=== PATIENT | female | born 1970 | race Caucasian/White ===

== ENCOUNTER 2020-02-07 13:04 | Outpatient (CLI) | payer OTHER, SELFPAY ==
--- NOTE | ~2020-02-07 | XR_ITS ---
EXAMINATION: XR lumbar spine 2-3V EXAM DATE: 02/07/2020 13:31 INDICATION: Right leg sciatica, low back pain. TECHNIQUE: Frontal and lateral projections of the lumbar spine. Comparison is made to prior examinat ion from 11/11/2014. FINDINGS: There is bilateral L5 chronic spondylolysis with greater than 2 anterolisthesis L5 on S1, although these segments appear to be fused today. There is posterior fusion hardware at L5/S1. There is mild to moderate lumbar facet arthropathy. Sacrum, sacroiliac joints, sacral arcuate lines are int act. Minimal lumbar disc disease. There is IUD projecting over the central aspect of the pelvis. IMPRESSION: 1. Chronic L5 spondylolysis with grade 2 anterolisthesis L5 on S1, but also fusion of these vertebr al bodies. 2. Mild to moderate arthropathy. Reviewed, dictated and finalized at location A. IMPRESSION: 1. Chronic L5 spondylolysis with grade 2 anterolisthesis L5 on S1, but also f usion of these vertebral bodies. 2. Mild to moderate arthropathy.
== END 2020-02-07 13:05 | disposition home or self-care (01) ==
LOC: ANHIMG 13:14
PROVIDERS: PCP Emergency Medicine; Visit Provider Emergency Medicine
DX: M54.41 Lumbago with sciatica, right side (principal); M47.816 Spondylosis without myelopathy or radiculopathy, lumbar region; M43.16 Spondylolisthesis, lumbar region; M12.88 Other specific arthropathies, not elsewhere classified, other specified site
CPT/HCPCS: 72100

== ENCOUNTER 2020-07-19 08:31 | Outpatient (CLI) | payer OTHER, SELFPAY ==
--- NOTE | ~2020-07-19 | XR_ITS ---
EXAMINATION: XR UGIAC wo kub DATE: 07/19/2020 09:15 INDICATION: Gastroesophageal reflux disease without esophagitis TECHNIQUE: The patient drank thick barium, gas-producing crystals, and thin barium. Fluoroscopy of th e esophagus, stomach, and proximal small bowel were performed. Fluoroscopy exposure time was 1.9 bev ramu. The DAP for this procedure was 17.903 Gycm2. COMPARISON: None. FINDINGS: There is no mass or stricture of the esophagus. Esophageal motility is normal. There is no hiatal hernia. There was no gastroesophageal reflux with provocative maneuvers. The stomach and proxi mal small bowel show normal folding patterns. IMPRESSION: 1. Unremarkable upper GI. Reviewed, dictated and finalized at location A. IMPRESSION: 1. Unremarkable upper GI.
== END 2020-07-19 08:32 | disposition home or self-care (01) ==
LOC: ANHIMG 08:39
PROVIDERS: PCP Emergency Medicine; Visit Provider Emergency Medicine
DX: K21.9 Gastro-esophageal reflux disease without esophagitis (principal)
CPT/HCPCS: 74246

== ENCOUNTER 2021-03-16 10:29 | Outpatient (CLI) | payer OTHER, SELFPAY ==
--- NOTE | ~2021-03-16 | XR_ITS ---
EXAMINATION: XR hand LT min 3V DATE: 03/16/2021 10:41 INDICATION: Left hand pain. TECHNIQUE: 3 views of left hand were obtained. COMPARISON: None. FINDINGS: Bone alignment is normal. No fracture. There is mild osteoarthritis of first carpometacarpa l joint, first metacarpophalangeal joint, and second and third distal interphalangeal joints. IMPRESSION: 1. Mild polyarticular osteoarthritis. Reviewed, dictated and finalized at location A.
--- NOTE | ~2021-03-16 | XR_ITS ---
EXAMINATION: XR hand RT min 3V DATE: 03/16/2021 10:41 INDICATION: Right hand pain. TECHNIQUE: 3 views of right hand were obtained. COMPARISON: None. FINDINGS: Bone alignment is normal. No fracture. There is mild osteoarthritis of second metacarpophal angeal joint, first metacarpophalangeal joint, and second, fourth, and fifth distal interphalangeal j oints. IMPRESSION: 1. Mild polyarticular osteoarthritis. Reviewed, dictated and finalized at location A.
== END 2021-03-16 10:30 | disposition home or self-care (01) ==
LOC: ANHIMG 10:31
PROVIDERS: PCP Emergency Medicine; Visit Provider Emergency Medicine
DX: M19.041 Primary osteoarthritis, right hand (principal); M19.042 Primary osteoarthritis, left hand
CPT/HCPCS: 73130

== ENCOUNTER 2022-01-02 00:22 | Day surgery (SDC) | payer OTHER, SELFPAY ==
[2021-12-28 11:11] VITALS: BMI 33.7
[2022-01-02 06:17] VITALS: BP 119/79; PULSE 78; RESP 16; TEMP 36.3; O2SAT 99; BMI 33.7
[2022-01-02] MEDS: LACTATED RINGERS 1,000 ML 150 ML IV CONT ×2 (06:38→07:47)
--- NOTE | 2022-01-02 07:19 | PM.HPGS ---
History of Present Illness History of Present Illness Consent: Risks, benefits, and alternatives have been discussed and questions answered. Patient agrees to proceed with procedure. Chief complaint: neoplasm screening Narrative: Laura Govea is a 51 year old female here for first screening colonoscopy Review of Systems Constitutional: Constitutional: Denies headache(s) and Denies weakness Eyes: Eyes: Denies blurry vision ENT: Reports Normal hearing present, Denies headache(s) and Denies neck pain Cardiovascular: Cardiovascular: Denies chest pain and Denies dyspnea Respiratory: Respiratory: Denies dyspnea Gastrointestinal: Gastrointestinal: Reports no additional gastrointestinal complaints Genitourinary: Genitourinary: Denies dysuria Musculoskeletal: Musculoskeletal: Denies neck pain Integumentary/Breasts: Skin/Breast: Denies dry skin Neurologic: Reports Normal hearing present, Denies headache(s) and Denies weakness Psychiatric: Psychiatric: Denies anxiety Endocrine: Endocrine: Denies change in body appearance Hematologic/Lymphatic: Hematologic/Lymphatic: Denies easy bleeding Allergic/Immunologic: Allergic/Immunologic: Denies urticaria PMFSH Past Medical History Medical History (Updated 01/02/22 @ 07:19 by Silvano Scott MD) Colon cancer screening Social History Social History Years smoked: 20 Smoking status: Former smoker Tobacco type: cigarettes Alcohol intake: never Substance use: current Substance use type: marijuana Other substance usage details: SMOKES EVERYDAY- Living arrangements: with family Spiritual care concerns: No Meds Home Medications and Allergies Home Medications Medication Instructions Recorded Confirmed Type cetirizine 10 mg PO DAILY 12/28/21 01/02/22 History fluoxetine 60 mg PO DAILY 12/28/21 01/02/22 History melatonin 3 mg PO HS 12/28/21 01/02/22 History montelukast 10 mg PO HS 12/28/21 01/02/22 History rosuvastatin 10 mg PO DAILY 12/28/21 01/02/22 History Allergies Allergy/AdvReac Type Severity Reaction Status Date / Time adhesive Allergy Intermediate RASH Verified 01/02/22 06:24 Vital Signs Vital Signs - 24 hr 01/02/22 06:17 Temperature 97.3 F L Pulse Rate 78 Respiratory Rate 16 Blood Pressure 119/79 Pulse Oximetry 99 Exam Const: General: comfortable and no acute distress HENMT: General nose exam: Normal nares present Eyes: General: appearance normal, both eyes and all related structures Neck: Neck: no JVD Resp: Auscultation: clear to auscultation bilaterally Cardio: Rate: regular rate Rhythm: regular rhythm GI: Inspection: non-distended GI Palp: Yes Soft to palpation Skin: General skin exam: normal color Neuro: General: gait normal Speech: normal speech Extrem: General: normal to inspection Psych: Mental Status: mental status grossly normal Assessment and Plan Assessment and plan (1) Colon cancer screening: Code(s): Z12.11 - Encounter for screening for malignant neoplasm of colon Status: Acute Assessment and Plan: colonoscopy
--- NOTE | 2022-01-02 07:24 | P.PNAN_ITS ---
Anes - Initial Pre Proc Eval Procedure: Operation Date: 01/02/22 07:30 Proposed Procedures p Screening Colonoscopy - Silvano Scott MD Date/Time: 01/02/22 07:24 Surgeon: Silvano Scott MD Pre Op Diagnosis: neoplasm screening Patient Data Age: 51 Gender: F Height: 1.6 m Weight: 86.4 kg Last Vital Signs Temp 36.3 C L 01/02/22 06:17 Pulse 78 01/02/22 06:17 Resp 16 01/02/22 06:17 BP 119/79 01/02/22 06:17 Pulse Ox 99 01/02/22 06:17 Allergies Allergy/AdvReac Type Severity Reaction Status Date / Time adhesive Allergy Intermediate RASH Verified 01/02/22 06:24 Home Medications Medication Instructions Recorded Confirmed Type cetirizine 10 mg PO DAILY 12/28/21 01/02/22 History fluoxetine 60 mg PO DAILY 12/28/21 01/02/22 History melatonin 3 mg PO HS 12/28/21 01/02/22 History montelukast 10 mg PO HS 12/28/21 01/02/22 History rosuvastatin 10 mg PO DAILY 12/28/21 01/02/22 History Patient hx anesthesia problems: none Family hx anesthesia problems: none Results Review: All pre-operative results and documents have been reviewed as part of the pre-operative evaluation. [facility] Past Medical History Medical History (Updated 01/02/22 @ 07:25 by Tab Gonzalez MD) Anxiety Colon cancer screening Depression Hyperlipidemia Obesity Social History Social History Years smoked: 20 Smoking status: Former smoker Tobacco type: cigarettes Alcohol intake: never Substance use: current Substance use type: marijuana Other substance usage details: SMOKES EVERYDAY- Living arrangements: with family Spiritual care concerns: No Anes - Eval Final PreProcedure Day of Procedure 01/02/22 07:24 Patient weight: overweight Heart: regular rate and rhythm Lungs: clear to auscultation and normal air movement Airway: Mallampati scale class II Neurological: alert and oriented Last oral intake: >/= 8 hours ASA classification: II Emergent: no Anesthetic plan: proceed Anesthesia type and monitoring: general GIVS Results Review: All pre-operative results and documents have been reviewed as part of the pre-operative evaluation. Informed Consent: The patient's anesthetic plan and its attendant risks and benefits were discussed with the patient/family/POA. Questions were solicited and answers provided to the satisfaction of the patient/family/POA.
[2022-01-02 07:48] VITALS: BP 84/50; PULSE 73; RESP 24; O2SAT 95
[2022-01-02 07:58] VITALS: BP 113/69; PULSE 70; RESP 21; O2SAT 99
[2022-01-02 08:08] VITALS: BP 125/85; PULSE 71; RESP 23; O2SAT 100
== END 2022-01-02 08:20 | disposition home or self-care (01) ==
PROVIDERS: PCP Emergency Medicine; Visit Provider Internal Medicine Gastroenterology
PROC: 0DJD8ZZ Inspection of Lower Intestinal Tract, Via Natural or Artificial Opening Endoscopic (ICD-10-PCS; CPT 45378; principal; 2022-01-02 07:30)
DX: Z12.11 Encounter for screening for malignant neoplasm of colon (principal); K63.5 Polyp of colon; K57.30 Diverticulosis of large intestine without perforation or abscess without bleeding; K64.8 Other hemorrhoids; E78.5 Hyperlipidemia, unspecified; F41.8 Other specified anxiety disorders; Z87.891 Personal history of nicotine dependence; F12.90 Cannabis use, unspecified, uncomplicated
CPT/HCPCS: 45385; 88305; J2704; J7120

== ENCOUNTER 2024-11-02 09:01 | Outpatient (CLI) | payer OTHER, SELFPAY ==
--- NOTE | ~2024-11-02 | MM_ITS ---
EXAMINATION: MM screening [facility] BI w [facility] HISTORY: Screening TECHNIQUE: Craniocaudal and mediolateral oblique 3-D tomosynthesis images were obtained and synthetic 2-D images were generated. CAD analysis was submitted and interpreted. COMPARISON: Comparison to multiple prior studies sequentially, with oldest reviewed study dated 04/01. BREAST PARENCHYMAL COMPOSITION: Not dense: There are scattered areas of fibroglandular density. FINDINGS: There is no evidence of suspicious mass, calcification, or architectural distortion to sugg est malignancy in either breast. There has been no suspicious interval change. IMPRESSION: 1. No mammographic evidence of malignancy. 2. Recommend routine screening mammography in one year. BI-RADS Category 1: Negative Reviewed, dictated and finalized at location A. [facility] CHIEF
--- OUTSIDE RECORDS SUMMARY | 2024-11-02 09:22 | XMS_ITS | Clinical Summary ---
Author Organization [facility] Address [address] [place] [address] Care Team Providers Care Front Desk Host Name Role Phone Houston Perales MD Primary Care Provider [phone] Lauren Taylor RN Unavailable [phone] Source Comments [facility],non-owned Affiliates and Associated Physician Practices is amultiple site organization consisting of ambulatory clinics and hospital sitesin [place], [place], [place] and [place]. This disclosure is being madepursuant to the Care Everywhere program and may not contain all information available regarding this patient. Last updated 18.[facility] Allergies Active Allergy Reactions Criticality Noted Date Comments Adhesive Sensitivity Rash Low 06/06/2015 Medications * Be aware that medications may not be up to date on this document. Alwaysverify current medications with the patient. Medication Sig Dispensed Refills Start Date End Date Status sertraline (ZOLOFT) 100 MG tablet 200 mg 11/04/2014 Active traMADol (ULTRAM) 50 MG tablet 12/02/2014 Active ranitidine (ZANTAC) 150 MG tablet Take 150 mg by mouth 2 times daily. Active methocarbamol (ROBAXIN) 750 MG tablet Take 1 Tab by mouth every 6 hours as needed for Muscle Spasms 40 Tab 1 06/06/2015 Active Additional Information Patient not taking.Reported on 09/11/2015 MethylPREDNISolone (MEDROL, AZAR,) 4 MG KIT Take as directed 1 Kit 0 06/09/2015 Active Additional Information Patient not taking.Reported on 09/11/2015 Melatonin 10 MG Active etodolac (LODINE) 500 MG tablet Take 500 mg by mouth 3 times daily 90 Tab 1 12/13/2015 Active hydrocodone-acetamin ophen (NORCO) 5-325 MG tablet Take 1 Tab by mouth every 4 hours as needed for Pain (mailed to patient) 50 Tab 0 01/01/2016 Active Active Problems No known active problems Family History Medical History Relation Name Comments Cancer Father Gout Father Leukemia Father Other Mother Degenerative Di sk Disease Relation Name Status Comments Brother Alive Child Alive Father Alive Mother Alive Sister Alive Social History Tobacco Use Types Packs/Day Years Used Date Smoking Tobacco: Every Day Cigarettes 0.3 30 Smokeless Tobacco: Never Tobacco Cessation:Ready to Q uit: No; Counseling Given: No Comments:e-cig Alcohol Use Standard Drinks/Week Comments No 0 (1 standard drink = 0.6 oz pur e alcohol) Sex and Gender Information Value Date Recorded Sex Assigned at Female 11/16/2022 4:22 PM 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 Gender Identity Female 11/16/2022 4:22 PM 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 Sexual Orientation Straight 11/16/2022 4: 22 PM 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 Last Filed Vital Signs Vital Sign Reading Time Taken Comments Blood Pressure 129/74 09/11/2015 1:29 PM 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 Pulse 99 09/11/2015 1:29 PM 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 Temperature 36.9 ??C (98.5 ??F) 06/06/2015 8:36 PM CD T Respiratory Rate 18 06/06/2015 8:36 PM CDT Oxygen Saturation 97% 06/06/2015 8:36 PM CDT Inhaled Oxygen Concentration - - Weight 98.9 kg (218 lb) 09/11/2015 1:29 PM 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 Height 162.6 cm (5' 4 ) 09/11/2015 1:29 PM 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 Body Mass Index 37.42 09/11/2015 1:29 PM 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 Plan of Treatment Health Maintenance Due Date Last Done Comments COLOGUARD (AGES 45-75) - COL ON CA SCREENING 1971 COLON MONITORING 1971 COLONOSCOPY - COLON CA SCREENING 1971 CT COLONOGRAPHY - COLON CA SCREENING 1971 Colorectal Cancer Screening 1971 FIT - COLON CA SCREENING 1971 FLEX SIG - COLON CA SCREENING 1971 LIPID TESTING 1971 MAMMOGRAM 1971 PAP SMEAR 1971 HIV SCREENING 1986 HEPATITIS C SCREENING 04/30/1989 DTAP/TDAP/TD VACCINES (1 - Tdap) 1990 HEPATITIS B VACCINE (1 of 3 - 19+ 3-dose series) 1990 PNEUMOCOCCAL VACCINE 50+ (1 of 2 - PCV) 1990 PNEUMOCOCCAL VACCINE (1 of 2 - PCV) 1990 ZOSTER VACCINE (1 of 2) 2021 COVID-19 VACCINE (1 - 2023-2 5 season) 2024 INFLUENZA VACCINE (#1) 2024 DEPRESSION SCREENING 10/06/2024 HIB VACCINE Aged Out No longer eligi ble based on patient's age to complete this topic HPV VACCINE Aged Out No longer eligi ble based on patient's age to complete this topic MENINGOCOCCAL (Group B) VACCINE Aged Out No longer eligible based on patient's age to complete this topic MENINGOCOCCAL VACCINE Aged Out No mario indy eligible based on patient's age to complete this topic Medical Devices Implanted Type Area Smelter Operator Device Identifier Shelf Expiration Date Model / Serial / Lot Chip Canc Bone Frz Dried 4-9.5mm 30cc Implanted:Qty: 1 on 06/06/2015 by Fabrice Triana MD at [facility] N/A: Spine Lumbar [employer] 07/12/2019 [id number] / / [id number] Kt Infs Bone Grft Med Implanted:Qty: 1 on 06/06/2015 by Fabrice Triana MD at [facility] N/A: Spine Lumbar Medtronic [employer]or [employer] 09/05/2016 [id number] / / [id number] Plate Spire 45mm Implanted:Qty: 1 on 06/06/2015 by Fabrice Triana MD at [facility] N/A: Spine Lumbar Medtronic [employer] [id number] / / St Scrw Brk Off M4 Implanted:Qty: 1 on 06/06/2015 by Fabrice Triana MD at [facility] N/A: Spine Lumbar Medtronic [employer] [id number] / / Advance Directives * Full Code (Latest Code Status on File) Date Activated Date Inactivated Comments 06/06/2015 5:15 PM 06/07/2015 2:13 AM Care Teams Front Desk Host Relationship Specialty Start Date End Date Houston Perales MD [address] [place] [address] PCP - General Family Medicine 05/29/15 Lauren Taylor, RN Communications Lead 06/06/15
--- OUTSIDE RECORDS SUMMARY | 2024-11-02 09:22 | XMS_ITS | Patient Health Summary ---
Author Organization [facility] Address [address] [place] [address] Care Team Providers Care Wire Brush Maker Name Role Phone Houston Perales MD Primary Care Provider [phone] Lauren Taylor RN Unavailable [phone] [facility],non-owned Affiliates and Associated Physician Practices is amultiple site organization consisting of ambulatory clinics and hospital sitesin [place], [place], [place] and [place]. This disclosure is being madepursuant to the Care Everywhere program and may not contain all information available regarding this patient. Last updated 18.[facility] Allergies * Adhesive Sensitivity(Rash) -Low Criticality Medications * Be aware that medications may not be up to date on this document. Alwaysverify current medications with the patient. * sertraline (ZOLOFT) 100 MG tablet(Started 11/04/2014) 200 mg * traMADol (ULTRAM) 50 MG tablet(Started 12/02/2014) * ranitidine (ZANTAC) 150 MG tablet Take 150 mg by mouth 2 times daily. * methocarbamol (ROBAXIN) 750 MG tablet(Started 06/06/2015) Take 1 Tab by mouth every 6 hours as needed for Muscle Spasms 1 refill left * MethylPREDNISolone (MEDROL, AZAR,) 4 MG KIT(Started 06/09/2015) Take as directed * Melatonin 10 MG * etodolac (LODINE) 500 MG tablet(Started 12/13/2015) Take 500 mg by mouth 3 times daily 1 refill left * hydrocodone-acetaminophen (NORCO) 5-325 MG tablet(Started 01/01/2016) Take 1 Tab by mouth every 4 hours as needed for Pain (mailed to patient) Active Problems No known active problems Social History Tobacco Use Types Packs/Day Years Used Date Smoking Tobacco: Every Day Cigarettes 0.3 30 Smokeless Tobacco: Never Tobacco Cessation:Ready to Q uit: No; Counseling Given: No Comments:e-cig Alcohol Use Standard Drinks/Week Comments No 0 (1 standard drink = 0.6 oz pur e alcohol) Sex and Gender Information Value Date Recorded Sex Assigned at Female 11/16/2022 4:22 PM HOSTEL MANAGER Gender Identity Female 11/16/2022 4:22 PM HOSTEL MANAGER Sexual Orientation Straight 11/16/2022 4: 22 PM HOSTEL MANAGER Last Filed Vital Signs Vital Sign Reading Time Taken Comments Blood Pressure 129/74 09/11/2015 1:29 PM HOSTEL MANAGER Pulse 99 09/11/2015 1:29 PM HOSTEL MANAGER Temperature 36.9 ??C (98.5 ??F) 06/06/2015 8:36 PM CD T Respiratory Rate 18 06/06/2015 8:36 PM CDT Oxygen Saturation 97% 06/06/2015 8:36 PM CDT Inhaled Oxygen Concentration - - Weight 98.9 kg (218 lb) 09/11/2015 1:29 PM HOSTEL MANAGER Height 162.6 cm (5' 4 ) 09/11/2015 1:29 PM HOSTEL MANAGER Body Mass Index 37.42 09/11/2015 1:29 PM HOSTEL MANAGER Medical Devices Implanted Type Area Irrigation Installation Specialist Device Identifier Shelf Expiration Date Model / Serial / Lot Chip Canc Bone Frz Dried 4-9.5mm 30cc Implanted:Qty: 1 on 06/06/2015 by Fabrice Triana MD at [facility] N/A: Spine Lumbar [employer] 07/12/2019 [id number] / / [id number] Infs Bone Grft Med Implanted:Qty: 1 on 06/06/2015 by Fabrice Triana MD at [facility] N/A: Spine Lumbar Medtronic [employer] 09/05/2016 [id number] / / [id number] Plate Spire 45mm Implanted:Qty: 1 on 06/06/2015 by Fabrice Triana MD at [facility] N/A: Spine Lumbar Medtronic [employer] [id number] / / St Scrw Brk Off M4 Implanted:Qty: 1 on 06/06/2015 by Fabrice Triana MD at [facility] N/A: Spine Lumbar Medtronic [employer] [id number] / / Procedures * CT LUMBAR SPINE WO CONTRAST(Performed 01/01/2016) Performed for S/P lumbar fusion * XR LUMBAR SPINE 2 OR 3VW(Performed 09/11/2015) Performed for S/P lumbar fusion * CARDIAC RHYTHM STRIP ORDER(Performed 06/09/2015) * XR SPINE 1 VIEW(Performed 06/06/2015) Performed for Back pain, unspecified location * XR SPINE 1 VIEW(Performed 06/06/2015) Performed for Back pain, unspecified location * FUSION LUMBAR POSTERIOR WITH SPIRE PLATING(Performed 06/06/2015) Performed for Congenital spondylolisthesis * HCG URINE QUALITATIVE - POINT OF CARE(Performed 06/06/2015) * MRI LUMBAR SPINE WO CONTRAST(Performed 05/31/2015) Performed for Spondylolisthesis of lumbar region * XR THORACIC SPINE 2VW(Performed 03/27/2015) Performed for Thoracic back pain, unspecified * XR CERVICAL SPINE 2 OR 3VW(Performed 03/27/2015) Performed for Neck pain * XR LUMBAR SPINE 2 OR 3VW(Performed 03/27/2015) Results * CT LUMBAR SPINE NON CONTRAST (01/01/2016 12:38 PM CDT) Anatomical Region Laterality Modality Spine Computed Tomogra phy 01/01/2016 3:43 PM CDT Impressions 01/01/2016 4:39 PM CDT 1. Postoperative appearance of interval L5-S1 posterior spinal stabilization with unchanged grade 2 anterolisthesis of L5 on S1 due to chronic L5 pars interarticulares defects resulting in unchanged severe bilateral neural foraminal stenosis at this level. Narrative 01/01/2016 4:39 PM CDT EXAMINATION: Computed Tomography (CT) of the lumbar spine without contrast HISTORY: L5-S1 grade 2 spondylolisthesis status instrumented posterior spinal stabilization. TECHNIQUE: CT of the lumbar spine was performed without contrast according to standard protocol. COMPARISON: Comparison is made with a prior MRI study from May 31, 2015. FINDINGS: Postoperative appearance of interval L5-S1 instrumented posterior spinal stabilization is seen with two vertical parallel metallic plates abutting the L5 and S1 spinous processes. 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 There is advanced degenerative disc disease at the L5-S1 level with disc space height loss and endplate sclerosis. The remaining intervertebral discs appear normal in height. The vertebral bodies appear normal in height without evidence of compression fractures. There is atherosclerotic calcification in the abdominal aorta. An intrauterine contraceptive device is noted. L1-L2: There is no disc herniation. There is no facet osteoarthritis. There is no neural foraminal stenosis. There is no spinal canal stenosis. L2-L3: There is no disc herniation. There is minimal left facet osteoarthritis. There is no neural foraminal stenosis. There is no spinal canal stenosis. L3-L4: There is no disc herniation. There is no facet osteoarthritis. There is no neural foraminal stenosis. There is no spinal canal stenosis. L4-L5: There is no disc herniation. There is mild right facet osteoarthritis. There is no neural foraminal stenosis. There is no spinal canal stenosis. L5-S1: There are anterior and posterior disc bulges due to anterolisthesis. There is moderate to severe bilateral facet osteoarthritis. There is severe bilateral neural foraminal stenosis. There is no spinal canal stenosis. Procedure Note James Ram MD - 01/01/2016 EXAMINATION: Computed Tomography (CT) of the lumbar spine without contrast HISTORY: L5-S1 grade 2 spondylolisthesis status instrumented posterior spinal stabilization. TECHNIQUE: CT of the lumbar spine was performed without contrast according to standard protocol. COMPARISON: Comparison is made with a prior MRI study from May 31, 2015. FINDINGS: Postoperative appearance of interval L5-S1 instrumented posterior spinal stabilization is seen with two vertical parallel metallic plates abutting the L5 and S1 spinous processes. 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 There is advanced degenerative disc disease at the L5-S1 level with disc space height loss and endplate sclerosis. The remaining intervertebral discs appear normal in height. The vertebral bodies appear normal in height without evidence of compression fractures. There is atherosclerotic calcification in the abdominal aorta. An intrauterine contraceptive device is noted. L1-L2: There is no disc herniation. There is no facet osteoarthritis. There is no neural foraminal stenosis. There is no spinal canal stenosis. L2-L3: There is no disc herniation. There is minimal left facet osteoarthritis. There is no neural foraminal stenosis. There is no spinal canal stenosis. L3-L4: There is no disc herniation. There is no facet osteoarthritis. There is no neural foraminal stenosis. There is no spinal canal stenosis. L4-L5: There is no disc herniation. There is mild right facet osteoarthritis. There is no neural foraminal stenosis. There is no spinal canal stenosis. L5-S1: There are anterior and posterior disc bulges due to anterolisthesis. There is moderate to severe bilateral facet osteoarthritis. There is severe bilateral neural foraminal stenosis. There is no spinal canal stenosis. IMPRESSION 1. Postoperative appearance of interval L5-S1 posterior spinal stabilization with unchanged grade 2 anterolisthesis of L5 on S1 due to chronic L5 pars interarticulares defects resulting in unchanged severe bilateral neural foraminal stenosis at this level. Briana Brice APRN-GRIP CT ORDERABLES * XR LUMBAR SPINE 2 OR 3 VW (09/11/2015 1:12 PM HOSTEL MANAGER) Only the most recent of2 resultswithin the time period is included. Anatomical Region Laterality Modality Spine Radiographic Destiny ging 09/11/2015 1:18 PM HOSTEL MANAGER Impressions 09/11/2015 1:24 PM HOSTEL MANAGER Interval fusion of the posterior elements at L5-S1. L5 pars defects and likely unchanged grade 2 anterolisthesis of L5 on S1. Narrative 09/11/2015 1:24 PM HOSTEL MANAGER Examination: Lumbar spine 2 or 3 views History: Lumbar spondylosis Findings: Lateral flexion and extension views of the lumbar spine were performed with comparison made to 03/27/2015. There has been interval fusion of L5-S1 posteriorly. L5 pars defects and grade 2 anterolisthesis of L5 on S1 appears likely unchanged. There is no definite change upon flexion and extension. No compression deformity is seen. There is severe disc height loss at L5-S1. Procedure Note Mauro Mendiola MD - 09/11/2015 Examination: Lumbar spine 2 or 3 views History: Lumbar spondylosis Findings: Lateral flexion and extension views of the lumbar spine were performed with comparison made to 03/27/2015. There has been interval fusion of L5-S1 posteriorly. L5 pars defects and grade 2 anterolisthesis of L5 on S1 appears likely unchanged. There is no definite change upon flexion and extension. No compression deformity is seen. There is severe disc height loss at L5-S1. IMPRESSION Interval fusion of the posterior elements at L5-S1. L5 pars defects and likely unchanged grade 2 anterolisthesis of L5 on S1. Fabrice Triana MD DIAGNOSTIC IMAGING O RDERABLES * CARDIAC RHYTHM STRIP ORDER (06/09/2015 5:31 AM CDT) Narrative 06/09/2015 5:31 AM CDT Ordered by an unspecified provider. Scanned Document CARDIAC SERVICES ORD ERABLES * XR SPINE 1 VIEW (06/06/2015 12:54 PM CDT) Only the most recent of2 resultswithin the time period is included. Narrative [facility] - 06/07/2015 11:05 AM CDT No Dictation. Fabrice Triana MD DIAGNOSTIC IMAGING O ARMIN [facility] [address] [place] [address] * HCG URINE QUALITATIVE - POINT OF CARE (IP) (06/06/2015 9:32 AM CDT) HCG Qual Urine Negative Negative [facility] QC Verified Yes Yes [facility] POC T TESTING Urine specimen (specimen) URINE / Unknown 06/06/2015 9:32 AM CDT Leonard Mckeon DO LAB - POINT OF CARE ORDERABLES Performing Organization Address City/[facility] Co de Phone Number [facility] [address] [place] [address] * MRI SPINE LUMBAR NON CONTRAST (05/31/2015 10:20 AM CDT) Anatomical Region Laterality Modality Spine Magnetic Resonan ce 05/31/2015 10:5 6 AM CDT Impressions 05/31/2015 11:04 AM CDT 1. Bilateral pars defects at L5, with grade 2 anterolisthesis at L5-S1. There is associated severe degenerative disc disease, moderate central canal stenosis, and severe bilateral neuroforaminal stenosis. 2. The intervertebral discs at L1-2 through L4-5 are normal. Narrative 05/31/2015 11:04 AM CDT EXAMINATION: Magnetic resonance imaging (MRI) of the lumbar spine without contrast HISTORY: 45-year-old female, acquired spondylolisthesis TECHNIQUE: MRI of the lumbar spine was performed according to standard protocol. COMPARISON: ??None FINDINGS: The lumbar lordosis is normal. There is grade 2 anterolisthesis at L5-S1. This measures 12 mm. There are bilateral pars interarticularis defects at L5. Alignment at the other levels is normal. Intervertebral disc signal is normal from T12-L1 through L4-L5. The visualized distal spinal cord is normal, terminating at L1. No epidural mass or collection is seen. L1-L2: There is no disc bulge. There is no central canal stenosis. There is no facet osteoarthritis. There is no neural foraminal stenosis. L2-L3: There is no disc bulge. There is no central canal stenosis. There is no facet osteoarthritis. There is no neural foraminal stenosis. L3-L4: There is no disc bulge. There is no central canal stenosis. There is mild facet degeneration. There is no neural foraminal stenosis. L4-L5: There is no disc bulge. There is no central canal stenosis. There is mild facet degeneration. There is no neural foraminal stenosis. L5-S1: There is severe disc space narrowing and loss of the normal disc signal. There is marrow endplate degenerative signal in the inferior endplate of L5 and the superior endplate of S1. There is severe bilateral neuroforaminal stenosis. There is moderate central canal stenosis. Subcentimeter Tarlov cysts are noted in the sacral spinal canal at S1 and S2. Procedure Note Obey Rushing MD - 05/31/2015 EXAMINATION: Magnetic resonance imaging (MRI) of the lumbar spine without contrast HISTORY: 45-year-old female, acquired spondylolisthesis TECHNIQUE: MRI of the lumbar spine was performed according to standard protocol. COMPARISON: None FINDINGS: The lumbar lordosis is normal. There is grade 2 anterolisthesis at L5-S1. This measures 12 mm. There are bilateral pars interarticularis defects at L5. Alignment at the other levels is normal. Intervertebral disc signal is normal from T12-L1 through L4-L5. The visualized distal spinal cord is normal, terminating at L1. No epidural mass or collection is seen. L1-L2: There is no disc bulge. There is no central canal stenosis. There is no facet osteoarthritis. There is no neural foraminal stenosis. L2-L3: There is no disc bulge. There is no central canal stenosis. There is no facet osteoarthritis. There is no neural foraminal stenosis. L3-L4: There is no disc bulge. There is no central canal stenosis. There is mild facet degeneration. There is no neural foraminal stenosis. L4-L5: There is no disc bulge. There is no central canal stenosis. There is mild facet degeneration. There is no neural foraminal stenosis. L5-S1: There is severe disc space narrowing and loss of the normal disc signal. There is marrow endplate degenerative signal in the inferior endplate of L5 and the superior endplate of S1. There is severe bilateral neuroforaminal stenosis. There is moderate central canal stenosis. Subcentimeter Tarlov cysts are noted in the sacral spinal canal at S1 and S2. IMPRESSION 1. Bilateral pars defects at L5, with grade 2 anterolisthesis at L5-S1. There is associated severe degenerative disc disease, moderate central canal stenosis, and severe bilateral neuroforaminal stenosis. 2. The intervertebral discs at L1-2 through L4-5 are normal. Fabrice Triana MD MR ORDERABLES * XR THORACIC SPINE 2 VW (03/27/2015 12:05 PM CDT) Anatomical Region Laterality Modality Spine Radiographic Destiny ging 03/27/2015 12:0 9 PM CDT Impressions 03/27/2015 12:09 PM CDT Unremarkable study. Narrative 03/27/2015 12:09 PM CDT Thoracic spine 2 views. History: Back pain. AP and lateral views show normal vertebral heights and interspace heights. Pedicles are intact. Procedure Note Bakari Amaro MD - 03/27/2015 Thoracic spine 2 views. History: Back pain. AP and lateral views show normal vertebral heights and interspace heights. Pedicles are intact. IMPRESSION Unremarkable study. Fabrice Triana MD DIAGNOSTIC IMAGING O RDERABLES * XR CERVICAL SPINE 2 OR 3 VW (03/27/2015 12:05 PM CDT) Anatomical Region Laterality Modality Spine Radiographic Destiny ging 03/27/2015 12:0 7 PM CDT Impressions 03/27/2015 12:22 PM CDT Unremarkable study. Edited by Anaya Porras on 03/27/2015 12:10 PM Narrative 03/27/2015 12:22 PM CDT CERVICAL SPINE TWO VIEWS History: Neck pain. AP and lateral views of the cervical spine show normal vertebral heights and interspace heights. Alignment is maintained. The odontoid process appears normal. Procedure Note Bakari Amaro MD - 03/27/2015 CERVICAL SPINE TWO VIEWS History: Neck pain. AP and lateral views of the cervical spine show normal vertebral heights and interspace heights. Alignment is maintained. The odontoid process appears normal. IMPRESSION Unremarkable study. Edited by Anaya Porras on 03/27/2015 12:10 PM Fabrice Triana MD DIAGNOSTIC IMAGING O NESSABLES Care Teams Wire Brush Maker Relationship Specialty Start Date End Date Houston Perales MD [address] [place] [id number] PCP - General Family Medicine 05/29/15 Lauren Taylor RN Cable Placer 06/06/15
--- OUTSIDE RECORDS SUMMARY | 2024-11-02 09:22 | XMS_ITS | Encounter Summary ---
Author Organization [facility] Address [address] [place] [address] Care Team Providers Care Hedis Abstractor Name Role Phone Shree Perales MD Primary Care Provider [phone] Houston Perales MD Primary Care Provider [phone] Lauren Taylor RN Unavailable [phone] Encounter Details Date Type Department Care Team (Late st Contact Info) Description 11/23/2014 Therapy Visit EXTERNAL NON-[facility] DEPT Houston Perales MD [address] [place] [address] Social History Tobacco Use Types Packs/Day Years Used Date Smoking Tobacco: Never Assessed Sex and Gender Information Value Date Recorded Sex Assigned at Female 11/16/2022 4:22 PM CONCRETE LABORER Gender Identity Female 11/16/2022 4:22 PM CONCRETE LABORER Sexual Orientation Straight 11/16/2022 4: 22 PM CONCRETE LABORER documented as of this encounter Plan of Treatment Not on file documented as of this encounter Visit Diagnoses Not on filedocumented in this encounter Care Teams Hedis Abstractor Relationship Specialty Start Date End Date Shree Perales MD [address] [place] [address] PCP - General Family Medicine 12/13/14 05/28/15 Houston Perales MD [address] [place] [address] PCP - General Family Medicine 05/29/15 Lauren Taylor, RN Engineering Teacher 06/06/15 documented as of this encounter
--- OUTSIDE RECORDS SUMMARY | 2024-11-02 09:22 | XMS_ITS | Data Portability ---
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 Patient will come back in a year unless there are new symptoms. Not available 08/17/2021 11:34:21 11/27/2022 11/27/2022 Annual gynecological exam performed. Patient will come back in a year unless there are new symptoms. Not available 11/27/2022 11:12:53 08/13/2024 08/13/2024 Annual gynecological exam performed. Patient will come back in a year unless there are new symptoms. Not available 08/13/2024 10:00:19 Plan of Treatment Reminders Order Date Submit Date Provider Last Modified By Organization Details Last Modified Time Details Appointments [facility] 2024 08:45A Eliseo GRIMALDO MD Not available Not available Not available Lab hormone panel, serum or plasma 2022 023 [facility] (Lab), [address], [place], [address], 11/28/2022 03:43:16 test, urine 2022 023 tionew yorkroya [place], [facility] [address], [place], [address], 04/07/2023 10:49:26 Referral None recorded. Procedures None recorded. Surgeries None recorded. Imaging MAMMO, screening , bilateral 2022 023 [facility] (Radiology), [address] [place], [address], 09/07/2023 05:00:49 Medication Orders ParaGard T 380A 380 square mm intrauter ine device 2022 023 Not available 04/07/2023 10:51:59 Patient TargetsNo targets recorded. Patient InstructionsNo instructions recorded. Reason for Referral None Reported. Results Created Date Observation Date Name Description Value Unit Range Abnormal Flag Note LastModifiedBy Organization Detail LastModifiedTime 11/27/1911/27/2022 FSH, LH, ESTRA DIOL estradiol 94.4 pg/mL This assay was perfo rmed using [employer] ratio n reage nts and test kits. Value s obtai latrice with other assay metho ds or kits canno t be used inter [place] . Femal e Estra diol Range s: Folli cular phase 12.4- 233 pg/mL Ovula tion phase 41.0- 398 pg/mL Lutea l phase 22.3- 341 pg/mL Postm enopa usal< 5-138 pg/mL Healt hy Pregn ant Women 1st Trime ster1 54-32 43 pg/mL 2nd Trime ster1 561-2 1280 pg/mL 3rd Trime ster8 525-> 42203 pg/mL Not Available [facility] (Lab) [address], [place], [address], 11/28/2022 03:43:14 11/27/19 23 11/27/2022 FSH, LH, ESTRA DIOL FSH 23.5 mIU/m L This assay was perfo rmed using [employer] reage nts and test kits. Value s obtai latrice with other assay metho ds or kits canno t be used inter villeda eably . Femal es Folli cular : 3.5-1 2.5 mIU/m L Ovula tion: 4.7-2 1.5 mIU/m L Lutea l: 1.7-7 .7 mIU/m L Postm enopa use: 25.8- 134.8 mIU/m L Not Available [facility] (Lab) [address] [facility], [place], [address], 11/28/2022 03:43:14 11/27/19 23 11/27/2022 FSH, LH, ESTRA DIOL LH 26.0 mIU/m L This assay was perfo rmed using [employer] reage nts and test kits. Value s obtai latrice with other assay metho ds or kits canno t be used inter villeda eably . 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 Funga l organ isms morph ologi thais consi stent with Sommer da spp. Elect ponce palafox miguel d by Raman Hartmann, CT on 2022 at 1:04 PM ----- ----- ----- ----- ----- ----- ----- ----- ----- ----- ----- ----- ----- ----- ----- ----- ----- ---- HPV RESUL TS: HPV mRNA E6/E7 : No HPV mRNA Detec gaby NOTE: This high risk HPV mRNA assay detec ts fourt een high- risk HPV types (16, 18, 31, 33, 35, 39, 45, 51, 52, 56, 58, 59, 66, 68) witho ut diffe renti ation . COMME NT: Note: This speci men was revie wed by a Cytot echno logis t and/o r Patho logis t (as indic ated in this repor t) after evalu ation using the Thinp rep Imagi ng Syste m. CLINI SHAILESH INFOR MATIO N: Menst rual Statu s: LMP (if appli cable ): Clini shailesh Histo ry/Pr eviou s Pap: Type of Neopl robb (if appli cable ): Signi fican t Clini shailesh Findi ngs: Other Histo ry: Hormo estefani (if appli cable ): PAP EDUCA MARIELY L NOTE: The Pap Test is a scree moustapha test with an inher ent false negat jerrell rate. Liqui d-bas ed sampl ing may decre ase, but will not elimi susan, false negat jererll resul ts. A negat jerrell resul t does not precl ude the prese nce and/o r devel opmen t of disea se, since the prese nce of abnor mal cells in the sampl e depen ds on the locat ion of the lesio n and sampl ing techn ique. Madalyn nued regul ar scree moustapha is the best metho d of cance r preve ntion . If repor gaby cytol ogic findi ng do not corre late with physi shailesh and/o r histo rical findi ngs, furth er inves tigat ion is recom abigail d, as clini thais ramirez nted. Not Available [facility] (Lab) [address], [place], [address], 12/02/2022 14:06:33 04/07/20 23 04/07/2023 pregn varun test, urine HCG negati ve Not Available [place] [address], [place], [address], 04/07/2023 10:49:19 08/13/20 24 08/13/2024 IMAGE GUIDE D PAP AND HPV REGAR DLESS image guided Pap, HPV regardless of Pap result SEE RESULT S BELOW CASE REPOR T: Cytol ogy Gynec ologi shailesh Repor t Case: [id number] Autho rafael prasanna Provi melecio: Stuart Grimaldo MD Colle cted: 08/13 0958 Order ing Locat ion: [place] Patho [place] Recei lorena: 08/14 0221 First Scree n: Amanda Luciano ed, CT Speci men: Serina gerard Pap - Image d, Cervi x STATE MENT OF ADEQU ACY: Satis facto ry for evalu ation Trans forma tion zone compo nent prese nt ----- ----- ----- ----- ----- ----- ----- ----- ----- ----- ----- ----- ----- ----- ----- ----- ----- ---- FINAL DIAGN OSIS: Negat jerrell for Intra epith elial Jodi berkowitz or Cristhian ross (NIL) . Mary anderson by Amanda Luciano ed, CT on 08/20 at 9:34 PM ----- ----- ----- ----- ----- ----- ----- ----- ----- ----- ----- ----- ----- ----- ----- ----- ----- ---- HPV RESUL TS: HPV mRNA E6/E7 : No HPV mRNA Detec gaby NOTE: This high risk HPV mRNA assay detec ts fourt een high- risk HPV types (16, 18, 31, 33, 35, 39, 45, 51, 52, 56, 58, 59, 66, 68) witho ut diffe renti ation . COMME NT: This speci men was revie wed by a Cytot echno logis t and/o r Patho logis t (as indic ated in this repor t) after evalu ation using the Thinp rep Imagi ng Syste m. CLINI SHAILESH INFOR MATIO N: Menst rual Statu s: LMP (if appli cable ): Clini shailesh Histo ry/Pr eviou s Pap: Type of Neopl robb (if appli cable ): Signi fican t Clini shailesh Findi ngs: Other Histo ry: Hormo estefani (if appli cable ): PAP EDUCA MARIELY L NOTE: The Pap Test is a scree moustapha test with an inher ent false negat jerrell rate. Liqui d-bas ed sampl ing may decre ase, but will not elimi susan, false negat jerrell resul ts. A negat jerrell resul t does not precl ude the prese nce and/o r devel opmen t of disea se, since the prese nce of abnor mal cells in the sampl e depen ds on the locat ion of the lesio n and sampl ing techn ique. Madalyn nued regul ar scree moustapha is the best metho d of cance r preve ntion . If repor gaby cytol ogic findi ng do not corre late with physi shailesh and/o r histo rical findi ngs, furth er inves tigat ion is recom abigail d, as naidai thais ramirez nted. Not Available [facility] (Lab) [address] [facility], [place], [address], 08/20/2024 22:37:36 Result Notes None recorded. Problems Name Problem SNOMED Code Status Onset Date Resolution Date Notes Provider Name and Address Organization Details Recorded Time Clinical finding Completed 201808/17/2021 Abnormal findings on dx imaging of oth body structures ;Recorded Elsewhere: No Locatio n: [facility] rce: EHR Chroni c: N Practice ID: [id number] Billa ble Time: 09:15:00 AM Linh Tillman [facility] 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 11:21:37 Disorder of intrauter ine contracep tive device Completed 201808/17/2021 [facility] compl of intrauteri ne contracept jerrell device, init encntr;Rec orded Elsewhere: No Locatio n: [facility] Romy rce: EHR Chroni c: N Practice ID: [id number] Billa ble Time: 08:15:00 AM Linh Tillman [facility] 11:21:35 Problem Notes None recorded. Procedures Surgical History Date Name Laterality Status Provider Name and Address Organization Details Recorded Time 023 IUD Removal completed JERRY Martin [address], [place], [address], [facility] 04/07/2023 10:48:10 023 IUD Insertion completed JERRY Martin [address], [place], [address], [facility] 04/07/2023 10:47:56 022 Date of Last Mammogram completed Rosa Ernst [facility] 04/07/2023 10:06:00 020 Date of Last Pap Smear completed Cintia Gurrola [facility] 08/16/2020 17:32:34 015 Mani piper ntrbd min dsc lum completed [facility] 08/16/2020 17:44:44 014 hemorrhoidectomy completed [facility] 08/16/2020 17:41:11 013 section completed [facility] 08/16/2020 17:40:53 Imaging Results None recorded. Procedure Notes None recorded. Medical Equipment None Reported. Allergies Allergen ID Allergen Name Allergen Category Reaction Reaction Severity Criticality Documentation Date Start Date Code Code System Note Provider Name and Address Organization Details Recorded Time 2601 adhesive environme nt,medica tion Not available Not available Not available 08/10/2020 [id number] UNK Cintia Winterstz [facility] 0 10:46:28 Medications Name Sig Start Date Stop Date Status Note LastModified by Organization Details LastModified Time cyclobenz aprine 10 mg tablet 11/27 completed Not Available Not Available Not Available amoxicill in 500 mg capsule 08/13 completed Not Available Not Available Not Available cetirizin e 10 mg tablet TAKE 1 TABLET BY MOUTH ONCE DAILY active Not Available Not Available No t Available azithromy natalie 250 mg tablet 08/16 completed Not Available Not Available Not Available cetirizin e 5 mg tablet take 1 tablet by oral route every day 08/17 completed Prescrib ed Elsewher e: Yes [facility] By: dmrose E ncounter DateTime : 07/19/20 19 08:30:00 AM Not Available Not Available Not Available fluconazo le 150 mg tablet Take 1 tablet every day by oral route as directed for 1 day. 04/07 completed Not Available Not Available Not Available ranitidin e 300 mg tablet 08/17 completed Not Available Not Available Not Available famotidin e 40 mg tablet 08/16 completed Not Available Not Available Not Available prednison e 20 mg tablet 08/16 completed Not Available Not Available Not Available simvastat in 10 mg tablet take 1 tablet by oral route every day in the evening 08/17 completed Prescrib ed Elsewher e: Yes Loca tion: [facility]ett farr [facility] odify By: tonia thomson DateTime : 07/19/20 08:30:00 AM Not Available Not Available Not Available valacyclo vir 500 mg tablet Take 1 tablet twice a day by oral route for 5 days. active Not Available Not Available No t Available tramadol 50 mg tablet TAKE 1 TABLET BY MOUTH THREE TIMES A DAY NEEDED active Not Available Not Available No t Available triamcino lone acetonide 0.1 % topical cream APPLY THIN COAT TO AFFECTED AREA TWICE A DAY active Not Available Not Available No t Available famotidin e 20 mg tablet 08/17 completed Not Available Not Available Not Available simvastat in 20 mg tablet 08/16 completed Not Available Not Available Not Available acyclovir 5 % topical ointment APPLY TO THE AFFECTED AREA(S) BY TOPICAL ROUTE EVERY 3 HOURS 6 TIMES PER DAY 11/27 completed Not Available Not Available Not Available metronida zole 0.75 % topical cream 08/16 completed Not Available Not Available Not Available fluoxetin e 10 mg capsule take 1 capsule by oral route every day 08/17 completed Prescrib ed Elsewher e: Yes [facility] By: tonia thomson DateTime : 07/19/20 08:30:00 AM Not Available Not Available Not Available omeprazol e 20 mg capsule,d elayed release 08/17 completed Not Available Not Available Not Available diclofena c sodium 75 mg tablet,de layed release TAKE 1 TABLET BY MOUTH TWICE DAILY 11/27 completed Not Available Not Available Not Available monteluka st 10 mg tablet TAKE 1 TABLET BY MOUTH EVERY DAY IN THE EVENING active Not Available Not Available No t Available ranitidin e 150 mg capsule take 1 capsule by oral route 2 times every day 08/17 completed Prescrib ed Elsewher e: Yes Loca [facility] odify By: dmrose E ncounter DateTime : 07/19/20 08:30:00 AM Not Available Not Available Not Available fluoxetin e 20 mg capsule TAKE 3 CAPSULES BY MOUTH EVERY DAY IN THE MORNING active Not Available Not Available No t Available fluticaso ne propionat e 50 mcg/actua tion nasal spray,rose pension 11/27 completed Not Available Not Available Not Available ParaGard T 380A 380 square mm intrauter ine device Take 1 device by intraute rine route. 2022 active Not Available Not Available Not Avai lable oxycodone 5 mg tablet TAKE 1 TABLET (5 MG TOTAL) BY MOUTH EVERY 4 (FOUR) HOURS NEEDED FOR PAIN 08/13 completed Not Available Not Available Not Available rosuvasta tin 10 mg tablet TAKE 1 TABLET BY MOUTH EVERY DAY active Not Available Not Available No t Available tramadol ER 300 mg capsule 24 hr,extend ed release take 1 capsule by oral route every day 08/17 completed Prescrib ed Elsewher e: Yes Loca tion: [facility] M odify By: dmrbeni chinunter DateTime : 07/19/20 08:30:00 AM Not Available Not Available Not Available Flucelvax Quad 60 mcg (15 mcg x 4)/0.5 mL intramusc ular susp 08/17 completed Not Available Not Available Not Available Vitals Date Recorded Body height Body mass index (BMI) Body weight Systolic blood pressure Diastolic blood pressure Provider Name and Address Organization Details Last Updated DateTime 08/17/2021 162.56 cm 33.8 kg/m2 96343.7 g 112 mm[Hg] 73 mm[Hg] Linh Tillman [facility] 11:35:44 Date Recorded Body weight Provider Name an d Address Organization Details Last Updated DateTime 11/27/2022 68201.84 g Linh Correa [facility] 11/27/2022 11:13:07 Date Recorded Systolic blood pressure Diastolic blood pressure Provider Name and Address Organization Details Last Updated DateTime 11/27/2022 120 mm[Hg] 74 mm[Hg] Brittany Brasher, [facility] [address] [place], [address], [facility] 11/27/2022 11:29:01 Date Recorded Body height Body mass index (BMI) Body weight Systolic blood pressure Diastolic blood pressure Provider Name and Address Organization Details Last Updated DateTime 04/07/2023 162.56 cm 35 kg/m2 34351.84 g 123 mm[Hg] 82 mm[Hg] Rosa Brucecaridad [facility] 3 10:05:56 Date Recorded Body height Body mass index (BMI) Body weight Systolic blood pressure Diastolic blood pressure Provider Name and Address Organization Details Last Updated DateTime 05/12/2023 162.56 cm 35 kg/m2 00178.84 g 134 mm[Hg] 84 mm[Hg] Rosarayray Brucecaridad [facility] 3 09:30:51 Date Recorded Body weight Systolic blood pressure Diastolic blood pressure Provider Name and Address Organization Details Last Updated DateTime 08/13/2024 02637.25 g 112 mm[Hg] 77 mm[Hg] Linh Correa [facility] 08/13/2024 10:02:44 Social History Question Answer Notes LastModified by Organizat ion Details LastModified Time Tobacco Smoking Status Former Smoker Rosa Brucecaridad [facility], [facility] 05/12/2023 09:31:01 What Is Your Level Of Alcohol Consumption? None Information not available 11/27/2022 Are You Blind Or Do You Have Difficulty Seeing? No Information not available 08/17/2021 What Is Your Level Of Caffeine Consumption? Occasional Information not available 08/17/2021 In The 14 Days Before Symptom Onset, Have You Had Close Contact With A Laboratory-confir med COVID-19 While That Case Was Ill? No Information not available 11/27/2022 In The 14 Days Before Symptom Onset, Have You Had Close Contact With A Person Who Is Under Investigation For COVID-19 While That Person Was Ill? No Information not available 11/27/2022 Have You Been To An Area Known To Be High Risk For COVID-19? No Information not available 11/27/2022 Are You Deaf Or Do You Have Serious Difficulty Hearing? No Information not available 08/17/2021 What Type Of Diet Are You Following? REGULAR Information not available 08/17/2021 Which Illicit Or Recreational Drugs Have You Used? Yes James Information not available 05/12/2023 Do You Or Have You Ever Used E-cigarettes Or Vape? Never Used Electronic Cigarettes Information not available 05/12/2023 What Is The Highest Grade Or Level Of School You Have Completed Or The Highest Degree You Have Received? 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 Yes Information not available 11/27/2022 What Was The Date Of Your Most Recent Tobacco Screening? 08/10/2020 Information not available 05/12/2023 Do You Use Protection During Sex? No Information not available 11/27/2022 Do You Use Your Seat Belt Or Car Seat Routinely? Yes Information not available 08/17/2021 Do You Have Smoke And Carbon Monoxide Detectors In Your Home? Yes Information not available 08/17/2021 Do You Or Have You Ever Used Smokeless Tobacco? Never Used Smokeless Tobacco Information not available 05/12/2023 How Much Tobacco Do You Smoke? No [email or web address] Information not available 08/16/2020 Do You Feel Stressed (tense, Restless, Nervous, Or Anxious, Or Unable To Sleep At Night)? [id number] Information not available 08/17/2021 Do You Use Any Illicit Or Recreational Drugs? Yes Information not available 11/27/2022 Do You Use Sunscreen Routinely? No Information not available 05/12/2023 Have You Used IV Drugs? No Information not available 11/27/2022 Sex: Unknown Functional Status Question Answer Note LastModified by Organizat ion Details LastModified Time Do you have difficulty walking or climbing stairs? No Information not available 05/12/2023 Are you able to walk? YESWOREST Information not available 08/17/2021 Are you able to care for yourself? Yes Information not available 05/12/2023 Do you have difficulty dressing or bathing? No Information not available 05/12/2023 What is your exercise level? Occasional [email or web address] Information not available 08/16/2020 Mental Status None recorded. Family History Relationship Description Onset Age of this Age Resolved Age Notes LastModified by Organization Details LastModified Time Mother Tayla martines [email or web address] Not available 08/16 17:38:59 Maternal Grandmother Diabetes mellitus [email or web address] Not available 08/16 17:39:08 Medical History Condition Response Anxiety Disorder Y Allergies (Food, seasonal, environmental ) Y Acid Reflux (GERD) Y High Cholesterol Y Depression/ depression Y Gynecological History Statement/Question Response Abnormal Pap N Date of Last Mammogram 03/25/2022 Flow Light Date of LMP 07/25/2024 On BCP's at Conception? N N Was last menstrual period normal Y STIs/STDs Y HPV Vaccine N Duration of Flow (days) 10 14 Current Control Method IUD Sexually Active? Y IUD Menses Monthly Y Age of first menstrual cycle 15 Date of Last Pap Smear 08/10/2020 Sexual Problems? N Desired Control Method IUD LMP Approximate N Obstetrics History GPAL:G 1 P 1 0 0 1 Type Value Full Term 1 Living 1 Total 1 Past Encounters Encounter ID Performer Location Encounter Start Date Encounter Closed Date Diagnosis/Indication Diagnosis SNOMED-CT Code Diagnosis ICD10 Code Diagnosis Note [id number] JERRY [facility] [address] [address] 08/10/2020 10:07:47 08/10/2020 12:49:21 Gynecologic examination 74773462 Z01.419 Suggested Calcium with Vitamin D 1200-1500m g daily. Patient advised to get an annual flu shot in the fall and [facility] take care clinic. Also to obtain TDap vaccinatio n if you have not had one in the last 10 years. Recommend yearly mammograms . Encouraged monthly self breast exams. Encourage safe sexual practices, to use condoms and limit partners if not already in a monogamous relationsh ip. Engage in daily exercise of low impact aerobic exercise 45-60 minutes 4-5 times weekly. Avoid tobacco and illicit drugs as well as using moderation with alcohol intake less than 1-2 8 oz beverages daily. This lifestyle behavior pattern will lead to less health conditions and longer life span. If BMI greater than 25 weight watchers or dietary consult advised. All questions have been answered. Patient appears to understand informatio n, but if you have any questions please call or respond to this email. monogamous relations ip Pap/hpv updated Doing well no issues today. [id number] Brittany Brasher [facility] [address],[facility] [place] [address] 08/17/2021 11:19:13 08/17/2021 12:19:01 Gynecologic examination [id number] Z01.419 Suggested Calcium with Vitamin D 1200-1500m g daily. Patient advised to get an annual flu shot in the fall and she could obtain at [facility] or [facility] clinic. Also to obtain TDap vaccinatio n if you have not had one in the last 10 years. Recommend yearly mammograms . Encouraged monthly self breast exams. Encourage safe sexual practices, to use condoms and limit partners if not already in a monogamous relationsh ip. Engage in daily exercise of low impact aerobic exercise 45-60 minutes 4-5 times weekly. Avoid tobacco and illicit drugs as well as using moderation with alcohol intake less than 1-2 8 oz beverages daily. This lifestyle behavior pattern will lead to less health conditions and longer life span. If BMI greater than 25 weight watchers or dietary consult advised. All questions have been answered. Patient appears to understand informatio n, but if you have any questions please call or respond to this email.Para guard IUD-placed 04/2013 [facility] office (after her son was born monogamous relationsh ipDeclined STD screen Pap/hpv q3-5yrs per asccp unless otherwise indicated. Doing well no issues today.[place] screen-dis cussed with PCPMammo done 06/2021-wnl [id number] Brittany Brasher [facility] 2015 [address] [address] [place] [address] 11/27/2022 11:03:11 11/27/2022 11:42:26 Gynecologic examination [id number] Z01.419 Suggested Calcium with Vitamin D 1200-1500m g daily. Patient advised to get an annual flu shot in the fall and she could obtain at [facility] or [facility] care clinic. Also to obtain TDap vaccinatio n if you have not had one in the last 10 years. Recommend yearly mammograms . Encouraged monthly self breast exams. Encourage safe sexual practices, to use condoms and limit partners if not already in a monogamous relationsh ip. Engage in daily exercise of low impact aerobic exercise 45-60 minutes 4-5 times weekly. Avoid tobacco and illicit drugs as well as using moderation with alcohol intake less than 1-2 8 oz beverages daily. This lifestyle behavior pattern will lead to less health conditions and longer life span. If BMI greater than 25 weight watchers or dietary consult advised. All questions have been answered. Patient appears to understand informatio n, but if you have any questions please call or respond to this email.Pap/ hpv sent STD Screen declined Genetic Screen discussed Colon Screen UTD PCP Dexa Screen na Routine Labs PCPMammo ordered Paraguard expires 04/2023 Screening mammography 24 [id number] Z12.31 Menopausal symptom 22767 002 N95.1 Assess labsdeterm ine if wants another IUD or other options if perimenopa use. [id number] JERRY Martin [place] [address] [address] 04/07/2023 09:02:49 04/07/2023 10:51:18 Insertion of intrauterine contraceptive device [id number] Z30.430 UPT (-)IUD removed and replaced without any immediate complicati ons (see procedure note) She has been counseled on all of the r/b/a of placement of an intrauteri ne device that include but are not limited to uterine perforatio n, injury to cervix, vagina, bladder, and bowel.Risk s of bleeding due to injury or increased irregular bleeding due to progestin effect of the device. Risks of infection would be increased within the first 21 days of placement with concommita nt cervicitis . She understand s that the device will need to be removed in this instance due to increased risk of Pelvic inflammato ry disease. Patient is aware she is at higher risk for STD and if contracted she could lose her fertility. Pt is aware that if occurs that she should contact office immediatel y to rule out ectopic which could be life threatenin g. IUD will also need to be removed and this could cause miscarriag e. Patient also informed that in the event her strings are absent or embedded at the time of removal she may need to have the IUD surgically removed. She was informed of the above and properly consented. IUD placed w/o complicati on. Patient should return to office after next period to check for string placement. Patient to expect irregular bleeding but should be seen in the ED if bleeding increases to soaking a pad an hour for at least 2 hours. She verbalized understand ing.RTC for 4-6 week string checkSTI testing declined Removal of intrauterine device [id number] Z30.432 [id number] JERRY Martin [place] [address] [address] 05/12/2023 09:17:41 05/12/2023 10:03:18 IUD check [id number] Z30.431 Patient is here for 4-6wk IUD string check. She denies complicati ons, pain, or unpleasant side effects. Happy with this control method. Wishes to continue. (+) strings noted on examRTC for WWE when due or sooner if needed Time spent in visit is a total of 15 mins with at least 50% of visit consisting of counseling and review of plan of care. [id number] Damian Grimaldo MD [place] [address] [address] 08/13/2024 09:34:40 08/13/2024 10:39:37 Gynecologic examination [id number] Z01.419 Annual gynecologi shailesh exam performed. Patient will come back in a year unless there are new symptoms. Suggest Calcium with Vitamin D if not eating in diet. Patient advised to get annual flu shot. Recommend yearly physicals and preform monthly breast exams. Genetic testing is available for patients with family history of cancer. Engage in safe sexual practices, use condoms. Encouraged to have daily exercise. Avoid tobacco and illicit drugs, moderation of alcohol. If BMI greater than 25 dietary consult advised. If you have any questions please call or email. mammogram- on schedule colon cancer screening - done DEXA scan- na Pap smear- today laboratory evaluation - done to referral to Dr. Burk for urinary stress incontinen ce Health Concerns Section Related Observation LastModified by Organization Detai ls LastModified Time None Recorded Concern Status LastModified by Organization Details LastModified Time None Recorded Advance Directives Directive None Recorded Payers Encounter Date Sequence Insurance Name Policy Number Policy Ricks Covered Member ID Ricks Member ID Guarantor Name 08/17/2021 1 [facility] (MEDICAID HMO) [id number] Laura Coultas [id number] Laura Coultas 11/27/2022 1 [facility] (MEDICAID HMO) [id number] Laura Coultas [id number] Laura Coultas 04/07/2023 1 [facility] (MEDICAID HMO) [id number] Laura Coultas [id number] Laura Coultas 05/12/2023 1 [facility] (MEDICAID HMO) [id number] Laura Coultas [id number] Laura Coultas 08/13/2024 1 [facility] (MEDICAID HMO) [id number] 0003 Laura Coultas [id number] Laura Coultas Notes Date Note Type Note Provider Name and Address Organization Details Recorded Time 08/17/2021 text/html Annual GYNReport ed bypatient.History:no gynecologic complaints Menstrual cycle:Normal menses (Ligher with paraguard this past year. No hot flashes or night sweats) Urinary symptoms:No hematuria; No incontinence Vulva:No genital lesion Vagina:Normal vaginal discharge Breast:No breast pain; No breast lump; No nipple discharge Current Contraception:Satisf ied with current contraception; Monogamous relationship; Intrauterine device (iud) (Paraguard IUD placed 04/2013 elsewhere) Sexual complaints:No sexual complaints; No pain during intercourse; Normal libido Menopausal Symptoms:No menopausal symptoms; Normal vaginal lubrication Psychological symptoms:No depression; No anxiety; No PMDD Preventive measures:Encourage self breast examination; Encourage regular exercise; Encourage no tobacco use; Encourage regular mammograms starting age 40; Followed with Q3 year pap smear and high risk HPV typing; Mammogram performed within the past year; Needs to schedule colonoscopy [facility] [address], [place], [address], [facility] 08/17/2021 12:08:01 11/27/2022 text/html Annual GYNReport ed bypatient.Menstrual cycle:Normal menses (Light with paraguard IUD) Urinary symptoms:No hematuria; No incontinence Vulva:No genital lesion Vagina:Normal vaginal discharge Breast:No breast pain; No breast lump; No nipple discharge Current Contraception:Satisf ied with current contraception; Intrauterine device (iud) Sexual complaints:No sexual complaints; No pain during intercourse; Normal libido Menopausal Symptoms:Normal vaginal lubrication;Hot flashes(Just a few per week) Psychological symptoms:No depression; No anxiety; No PMDD Preventive measures:Encourage self breast examination; Encourage regular exercise; Encourage no tobacco use; Encourage regular mammograms starting age 40; Followed with yearly pap smears; Needs to schedule mammogram; Up to date on colonoscopy screening Brittany Brasher [facility] [address], [place], [address], [facility] 11/27/2022 11:33:02 04/07/2023 text/html 52yopresents for paraguard IUD removal/replacementp araguard IUD inserted 04/10/2013monthly, regular periodsdesires replacement JERRY Martin [address], [place], [address], [facility] 04/07/2023 10:50:06 05/12/2023 text/html 53yopresents for IUD checks/p ParaGuard IUD insertion 04/07/23no issues, happy with IUD JERRY Martin [address], [place], [address], [facility] 05/12/2023 09:48:30 08/13/2024 text/html Annual GYNReport ed bypatient.History:no gynecologic complaints Menstrual cycle:Normal menses Urinary symptoms:No hematuria;Stress incontinence Vulva:No genital lesion Vagina:Normal vaginal discharge Breast:No breast pain; No breast lump Sexual complaints:No sexual complaints; No pain during intercourse Menopausal Symptoms:No menopausal symptoms Psychological symptoms:Depression; Anxiety; Txed Preventive measures:Encourage self breast examination; Encourage regular exercise Damian Grimaldo MD [address], [place], [address], [facility] 08/13/2024 10:38:30 OBGyn Episode Ob Episode Information Episode Created Date Number of Fetuses Patient Bloodtype Patient rh Status Prepregnancy Weight lbs Domestic Partner Domestic Partner Phone Father Name Animated Cartoons Painter Status 08/16/20 20 1 CLOSED Fetus Data First Name Last Name Admitted to NICU Weight (g) Sex Living Outcome Pediatric Complications Fetus ID Race Codes Race Delivery Type 3940.35 3704 M Full Term 6049 Primary Yoseph Calculation Initial Yoseph Date Initial Exam Date Initial Exam Provider Initial Ultrasound Date Last Menstrual Period Date Ultra Sound Weeks Gestation 0 Eighteen To Twenty Week Yoseph Update Ultra Sound Date Fundal Height At Umbil Quickening Date Ultra Sound Latest Weeks Gestation Final Yoseph Confirmed By Final Yoseph Confirmed Date Final Yoseph Date Ultra Sound Latest Days Gestation 0 0 Menstrual History Last Menstrual Date Menses Monthly On Bcp Conception Prior Menses Frequency Hcg Plus Date Menarche Onset Age Delivery Information Delivery Date Delivery Type Labor Anesthesia Weeks Gestation Incision Type Labor Labor Length Hrs Delivered By Post Complications Tubal Sterilization Discharge Date Comments 3 Bogdan Discharge Information Feeding Method Contraceptive Method Maternal HG B and HCT Levels
--- OUTSIDE RECORDS SUMMARY | 2024-11-02 09:22 | XMS_ITS | Clinical Summary ---
Author Organization [facility] Medical Office Building A Address [address] [place] [address] Care Team Providers Care Senior Wind Turbine Technician Name Role Phone Asim Briones MD Primary Care Provider + [phone] Ren Wagner MD Unavailable [phone] Allergies Active Allergy Reactions Criticality Noted Date Comments Adhesive Tape-Silicones Redness Low 06/01/2018 Mild sensitivity to some adhesive Medications montelukast (SINGULAIR) 10 mg tablet Take 1 tablet (10 mg total) by mouth nightly Active FLUoxetine (PROzac) 20 mg capsule Take 1 capsule (20 mg total) by mouth daily Active traMADol (ULTRAM) 50 mg tablet Take 1 tablet (50 mg total) by mouth every 6 (six) hours Active cyanocobalamin (Vitamin B-12) 500 mcg tablet Take 1 tablet (500 mcg total) by mouth every other day Active cetirizine 10 mg capsule Take by mouth. Active famotidine (PEPCID) 20 mg tablet Take 1 tablet (20 mg total) by mouth daily after dinner Active oxyCODONE (ROXICODONE) 5 mg immediate release tabletIndicatio ns:Pain,post op pain Take 1 tablet (5 mg total) by mouth every 4 (four) hours as needed for pain 10 tablet 04/02/2023 Active Hospital, Clinic, or Other Facility Administered Medication Ordered Dose Route Frequency Start Date End Date Status lidocaine-EPINEPHrine (XYLOCAINE with EPI) 1 %-1:100,000 injection 20 mLIndications:Administ ration of Local Anesthesia 20 mL infiltrate Once 06/01/2018 06/02/2038 Active Active Problems Problem Noted Date Diagnosed Date Localized swelling, mass and lump, upper limb Carpal tunnel syndrome on left 02/04/2023 Carpal tunnel syndrome on right 12/25/2022 Overview (12/25/2022): Added automatically from request for surgery [id number] Nevus 05/24/2018 Seasonal allergies Lumbar spondylolysis History of kidney stones Back pain Resolved Problems Problem Noted Date Diagnosed Date Resolved Date 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 06/01/2018 06/15/2018 Surgical History Surgery Date Site/Laterality Comments SECTION HEMORRHOID SURGERY LUMBAR FUSION Medical History Medical History Date Comments Seasonal allergies Lumbar spondylolysis History of kidney stones Back pain Depression Kidney stone Hypertension Family History Medical History Relation Name Comments Cancer Father LEUKEMIA Esophageal cancer Father Cancer Maternal Grandmother LUNG CA NCER Diabetes Maternal Grandmother Degenerative Disk Disease Mother Relation Name Status Comments Father Maternal Grandmother Mother Social History Tobacco Use Types Packs/Day Years Used Date Smoking Tobacco: Former Smokeless Tobacco: Never Tobacco Cessation:Counseling Given: Not Answered Alcohol Use Standard Drinks/Week Comments No 0 (1 standard drink = 0.6 oz pur e alcohol) AUDIT-C Answer Date Recorded Q1: How often do you have a drink containing alcohol? Never 04/02/2023 Q2: How many drinks containi ng alcohol do you have on a typical day when you are drinking? Patient does not drink Q3: How often do you have si x or more drinks on one occasion? Never 04/02/2023 Personal Safety Answer Date Recorded Have you ever been in or are you currently in a harmful physical or emotional relationship or is someone making you feel afraid or unsafe? Denies 09/02/2023 Comments Unknown Sex and Gender Information Value Date Recorded Sex Assigned at Not on file Legal Sex Female 10:10 AM CDT Gender Identity Female 05/18/2018 12:42 PM CDT Sexual Orientation Not on file Occupation Industry Job Start Date Job End Date unemployed Not on file Not on file Not on file Obstetrics History Last Filed Vital Signs Vital Sign Reading Time Taken Comments Blood Pressure 133/84 09/02/2023 8:43 AM CRISIS MANAGER Pulse 86 09/02/2023 8:43 AM CRISIS MANAGER Temperature 36 ??C (96.8 ??F) 09/02/2023 8:26 AM CRISIS MANAGER Respiratory Rate 18 09/02/2023 8:43 AM CRISIS MANAGER Oxygen Saturation 99% 09/02/2023 8:43 AM CRISIS MANAGER Inhaled Oxygen Concentration - - Weight 90.7 kg (200 lb) 09/02/2023 7:32 AM CRISIS MANAGER Height 162.6 cm (5' 4 ) 09/02/2023 7:32 AM CRISIS MANAGER Body Mass Index 34.33 09/02/2023 7:32 AM CRISIS MANAGER Plan of Treatment Health Maintenance Due Date Last Done Comments Breast Cancer Screening-Mammogram 1971 Cervical Cancer Screening 1971 Colon Cancer Screening-Colonoscopy 1971 Depression Screening 1971 Hepatitis C Screening 1971 Hepatitis B Screening 1989 Regular Well Visit/Exam 18-64 1989 Zoster Vaccine (1 of 2) 2021 DTaP/Tdap/Td Vaccine (2 - Td or Tdap) 06/09/2022 06/09/2012 Influenza Vaccine (#1) 2024 Pneumococcal vaccine <65 Aged Out No longer eligible based on patient's age to complete this topic Medical Devices Implanted Type Area Personnel Clerks Supervisor Device Identifier Shelf Expiration Date Model / Serial / Lot Other - See Comments Other - see comments N/A: Back Description:2014 bracket L5- S1 Insurance [id number] [place] [address] MEDICAID Care Teams Senior Wind Turbine Technician Relationship Specialty Start Date End Date Asim Briones MD PCP - General Family Medicine 03/17/18 Ren Wagner MD Consulting Physician Plastic Surgery 09/02/23
--- OUTSIDE RECORDS SUMMARY | 2024-11-02 09:22 | XMS_ITS | Referral Summary ---
Author Organization [facility] Address [address] [place] [address] Care Team Providers Care Tannery Gummer Name Role Phone Houston Perales MD Primary Care Provider [phone] Lauren Taylor RN Unavailable [phone] Source Comments [facility],non-owned Affiliates and Associated Physician Practices is amultiple site organization consisting of ambulatory clinics and hospital sitesin [place], [place], [place] and [place]. This disclosure is being madepursuant to the Care Everywhere program and may not contain all information available regarding this patient. Last updated 18.[facility] GenY Medium Allergies Active Allergy Reactions Criticality Noted Date [...] Active Active Problems No known active problems Social [...] Sex Assigned at Female 11/16/2022 4:22 PM FINANCE PROFESSOR Gender Identity Female 11/16/2022 4:22 PM FINANCE PROFESSOR Sexual Orientation Straight 11/16/2022 4: 22 PM FINANCE PROFESSOR Last Filed Vital Signs Vital Sign Reading Time Taken Comments Blood Pressure 129/74 09/11/2015 1:29 PM FINANCE PROFESSOR Pulse 99 09/11/2015 1:29 PM FINANCE PROFESSOR Temperature 36.9 ??C (98.5 ??F) 06/06/2015 8:36 PM CD T Respiratory Rate 18 06/06/2015 8:36 PM CDT Oxygen Saturation 97% 06/06/2015 8:36 PM CDT Inhaled Oxygen Concentration - - Weight 98.9 kg (218 lb) 09/11/2015 1:29 PM FINANCE PROFESSOR Height 162.6 cm (5' 4 ) 09/11/2015 1:29 PM FINANCE PROFESSOR Body Mass Index 37.42 09/11/2015 1:29 PM FINANCE PROFESSOR Functional Status Functional Status Response Date of Assess ment Is person deaf or have serious hearing difficult y? No 06/06/2015 Is person blind or have serious difficulty seein g? No 06/06/2015 Does person have serious dif ficulty walking/climbing stairs? No 06/06/2015 Does person have difficulty dressing/bathing? No 06/06/2015 Does person have difficulty doing errands alone? No 06/06/2015 Cognitive Status Response Date of Assessm ent Does person have difficulty concentrating/remembering/making decisions? No 06/06/2015 Plan of Treatment Not on file Medical Devices Implanted Type Area Design Specialist Device Identifier Shelf Expiration Date Model / Serial / Lot Chip Canc Bone Frz Dried 4-9.5mm 30cc Implanted:Qty: 1 on 06/06/2015 [facility] N/A: Spine Lumbar Allosource 07/12/2019 [id number] / / [id number] Kt Infs Bone Grft Med Implanted:Qty: 1 on 06/06/2015 by Fabrice Triana MD at [facility] N/A: Spine Lumbar Medtronic Sofamor [employer] 09/05/2016 [id number] / / [id number] Plate Spire 45mm Implanted:Qty: 1 on 06/06/2015 by Fabrice Triana MD at [facility] N/A: Spine Lumbar Medtronic Sofamor [employer] [id number] / / St Scrw Brk Off M4 Implanted:Qty: 1 on 06/06/2015 by Fabrice Triana MD at [facility] N/A: Spine Lumbar Medtronic Sofamor [employer] [id number] / / Advance Directives * Full Code (Latest Code Status on File) Date Activated Date Inactivated Comments 06/06/2015 5:15 PM 06/07/2015 2:13 AM Care Teams Tannery Gummer Relationship Specialty Start Date End Date Houston Perales MD [address] [place] [address] PCP - General Family Medicine 05/29/15 Lauren Taylor, RN Sugar Drier 06/06/15
--- OUTSIDE RECORDS SUMMARY | 2024-11-02 09:22 | XMS_ITS | Referral Summary ---
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 06/01/2018 06/15/2018 Social History Tobacco Use Types Packs/Day Years [...] file Not on file Not on file Last Filed Vital Signs Vital Sign Reading Time Taken Comments Blood Pressure 133/84 09/02/2023 8:43 AM GRAIN SCOOPER Pulse 86 09/02/2023 8:43 AM GRAIN SCOOPER Temperature 36 ??C (96.8 ??F) 09/02/2023 8:26 AM GRAIN SCOOPER Respiratory Rate 18 09/02/2023 8:43 AM GRAIN SCOOPER Oxygen Saturation 99% 09/02/2023 8:43 AM GRAIN SCOOPER Inhaled Oxygen Concentration - - Weight 90.7 kg (200 lb) 09/02/2023 7:32 AM GRAIN SCOOPER Height 162.6 cm (5' 4 ) 09/02/2023 7:32 AM GRAIN SCOOPER Body Mass Index 34.33 09/02/2023 7:32 AM GRAIN SCOOPER Plan of Treatment Not on file Medical Devices Implanted Type Area Sound Effects Technician Device Identifier Shelf Expiration Date Model / Serial / Lot Other - See Comments Other - see comments N/A: Back Description:2014 bracket L5- S1 [facility] Care Teams Head Esthetician Relationship Specialty Start Date End Date Asim Briones MD PCP - General Family Medicine 03/17/18 Ren Wagner MD Consulting Physician Plastic Surgery 09/02/23
== END 2024-11-02 09:02 | disposition home or self-care (01) ==
PROVIDERS: PCP Emergency Medicine; Visit Provider Emergency Medicine
DX: Z12.31 Encounter for screening mammogram for malignant neoplasm of breast (principal)
CPT/HCPCS: 77063; 77067